=== PATIENT | female | born 1945 | race Caucasian/White ===

== ENCOUNTER 2017-02-26 11:59 | Inpatient (IN) | payer MEDICARE ==
[~2017-02-26] VITALS: Ht 170.2 cm; Wt 103.7 kg
[~2017-02-26 11:59] MED LIST: ASCO500T23; ERGO400C; LOVA20TA7; MVI; WARF6TAB2; [UNRECOGNIZED DRUG - CODE]; vitamin e
--- NOTE | 2017-02-26 12:16 | ED.REPORT ---
HPI-Chest Pain 40 and Over Date of Service Feb 26, 2017 ED Provider: Keanu Mayo The patient is a 71 year old female with history of atrial fibrillation on Warfarin, who was sent to the emergency department from her primary care provider's office for further evaluation. The patient presented this morning for intermittent chest pressure with exertion that began about 1 month ago. Her pain is improved with rest. The pain is located to her central chest and neck. She also mentions back pain and lower extremity swelling. At the clinic this morning she was found to be in atrial fibrillation with a rate in the 130's. Her primary care physician was concerned about ST depressions seen on the EKG. They spoke to the utility worker roller shop who recommended evaluation in the emergency department. She is not currently in any pain. She denies lightheadedness, dizziness, weakness, shortness of breath, nausea, vomiting or diaphoresis. Her metoprolol was increased on Friday to 150 mg in the AM and 100 mg in the night. Nursing Notes Stated Complaint: RAPID A-FIB Nursing Notes Reviewed: Yes Allergies: Coded Allergies: codeine (Verified Allergy, Intermediate, very agitated / hyper, 02/26/17) Scheduled Ascorbate Calcium (Vitamin C) 500 Mg Tablet 500 MG PO QAM Cholecalciferol (Vitamin D3) (Vitamin D3) 2,000 Unit Capsule 4,000 UNIT PO QAM Cyclosporine (Restasis) 1 Each Droperette 1 DROP BOTH_EYES BID Lisinopril (Lisinopril) 40 Mg Tablet 40 MG PO QAM Lovastatin (Lovastatin) 20 Mg Tablet 30 MG PO HS Metoprolol Succinate ER (Metoprolol Succinate ER) 100 Mg Tab.er.24h 150 MG PO QAM Metoprolol Succinate ER (Metoprolol Succinate ER) 100 Mg Tab.er.24h 100 MG PO QPM Multivitamin (Multivitamins) 1 Each Capsule 1 EACH PO QAM Center-3/Dha/Epa/Fish Oil (Fish Oil 1,000 mg Softgel) 1 Each Capsule 1 EACH PO QAM Warfarin Sodium (Coumadin) 5 Mg Tablet 5 MG PO QPM General Time Seen by MD: 12:15 Chief Complaint Chest pain, Other (EKG changes) Hx Obtained From: Patient, Primary care provider Arrived By: Walk-in Sudden in Onset?: No Onset Occurred: More than a week ago... (1 month) Symptom Duration: Intermittent Location: : Substernal Quality: Pressure Radiation: : Neck Migration/Movement: Reports: None Severity: Current: No pain currently Severity: Maximum: Moderate Recent Healthcare: No recent hospitalization, Recent doctor visit Similar Sx Previous: Yes Risk Factors )( CAD Risk Stratification Hyperlipidemia HypertensionNo Diabetes mellitus, No Known CAD, No Smoking Risk factors reviewed )( TAD Risk Stratification HypertensionNo Risk factors reviewed )( PE Risk Stratification No , No , No Previous DVT, No Previous PE Risk factors reviewed Past Medical History Past Medical History 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 Knapp Past Medical History Atrial fibrillation Hypertension Hyperlipidemia Denies: Coronary artery disease Past Surgical History Colectomy Pacemaker x2 Cholecystectomy Appendectomy Family History Noncontributory Smoking History Never Smoker Social History Alcohol Use: "Social" Drug Use: Denies drug use Other Social History: Good social support, , Local resident Ambulatory Status Independent Review of Systems Respiratory: Denies: Shortness of breath Cardiovascular: Reports: Chest pain, Palpitations (chronic) GI: Denies: Nausea, Vomiting Musculoskeletal: Reports: Back pain, Extremity swelling, Neck pain Skin: Denies Diaphoresis Neurologic: Denies: Dizziness, Lightheaded, Weakness Complete sys rev & neg: except as marked. Physical Exam Initial Vital Signs Vital Signs (First) Date Time Temp Pulse Resp B/P Pulse Ox O2 Delivery O2 Flow Rate FiO2 02/26/17 12:17 36.7 132 20 157/105 96 Room Air Initial VS: Reviewed Head / Eyes: Atraumatic, Normocephalic, PERRL ENT: Mucous membranes moist, Conjunctiva normal, No scleral icterus Neck: Supple, Non-tender, Full range of motion Lymphatic: No lymphadenopathy Extremities: Vascular intact, Neuro intact, No swelling, No tenderness Skin: Warm, Dry, No cyanosis Neurologic: Alert, Oriented, Nonfocal Psychiatric: Mood/affect normal, Behavior normal, Normal thought content General/Constitutional: Awake, Alert, No acute distress, Well appearing Respiratory / Chest: Atraumatic, Breath sounds NL, Breath sounds = bilat, No respiratory distress, No rales, No rhonchi, No wheezing, No stridor, No chest tenderness Cardiovascular: No murmurs Heart Rate / Rhythm: Positive: Irreg irregular rhythm, Tachycardia Abdomen: Atraumatic, Soft, Non-tender, McBurney's non-tender, No guarding, No rebound, BS normoactive, No distention, No hernia, No palpable mass Interpretation & Diagnostics Lab Results Interpretation Result Diagram: 02/26/17 1230 02/26/17 1230 Test 02/26/17 12:30 White Blood Count 6.4th/mm3 (3.8-10.1) Red Blood Count 4.64mil/mm3 (3.90-5.20) Hemoglobin 14.0g/dL (12.0-15.6) Hematocrit 43.7% (35.0-46.0) Mean Corpuscular Volume 94.2fL (81-100) Mean Corpuscular Hemoglobin 30.2pg (27.0-35.0) Mean Corpuscular Hemoglobin Concent 32.0% (32.0-37.0) Red Cell Distribution Width 14.4% (12.3-15.4) Platelet Count 231bil/L (150-400) Neutrophils (%) (Auto) 66.2% (40-74) Lymphocytes (%) (Auto) 23.1% (14-46) Monocytes (%) (Auto) 9.1% (4-12) Eosinophils (%) (Auto) 1.1% (0-5) Basophils (%) (Auto) 0.5% (0-3) Prothrombin Time 20.1sec (8.1-12.5) Prothromb Time International Ratio 1.85ratio Sodium Level 141mEq/L (134-144) Potassium Level 4.3mEq/L (3.5-5.2) Chloride Level 101mEq/L (97-108) Carbon Dioxide Level 25mmol/L (18-29) Blood Urea Nitrogen 20mg/dL (8-27) Creatinine 0.71mg/dL (0.57-1.00) Estimat Glomerular Filtration Rate 117mL/min (>59) Glucose Level 115mg/dL (60-99) Calcium Level 9.6mg/dL (8.5-10.1) Magnesium Level 1.9mg/dL (1.6-2.6) Total Bilirubin 1.3mg/dL (0.0-1.2) Aspartate Amino Transf (AST/SGOT) 39U/L (0-50) Alanine Aminotransferase (ALT/SGPT) 39U/L (0-32) Alkaline Phosphatase 223U/L (25-165) Troponin T < 0.010ug/L (0.0-0.011) Total Protein 7.2g/dL (6.4-8.4) Albumin 3.8g/dL (3.4-5.0) ECG Interpretation ECG Interpretation: Atrial fibrillation with a rate of 139 Time: 12:20 Interpreted by: ED physician X-Ray Chest Interpretation Chest Xray Interpretation: IMPRESSION: Mild cardiomegaly with edema. Dictated by: Ligia Boyce M.D. on 02/26/2017 at 13:34 Interpretation / Wet Read by: Interpret - Radiologist Re-Eval/Medical Decision Med Decision/Clinical Course 71 yo f with Afib with RVR and exertional cp x weeks. Afib RVR on arrival improved with HR 80s-100 with diltiazem 10mg iv. Discussed with Cardiology who recommended admission for chemical cardioversion with amiodarone given subtherapeutic INR (previously 1.9 01/13 per PMD). Crit care time billed. Admitted to [facility]. Source of Hx: Old records, Family Time of Eval: 14:07 Re-Evaluation/Progress Note: Discussed plan for additional labs. Time of Eval: 14:41 Re-Evaluation/Progress Note: Discussed plan for admission with the patient. All questions were addressed. Consultation #1: Referral / Consult Name: Vishal Trujillo MD Consulted With: Cardiology Requested Call at: 14:04 Call Returned at: 14:06 Pass Worker: Agrees with eval, Agrees with plan Note: He wants us to cardiovert as long as her INR is therapeutic. Consultation #2: Referral / Consult Name: Vishal Trujillo MD Consulted With: Cardiology Requested Call at: 14:30 Call Returned at: 14:33 Note: Discussed INR results. If her INR has been therapeutic recently, go ahead and cardiovert her. If not, give amiodarone and admit. Consultation #3: Referral / Consult Name: Marimar Condon MD Consulted With: Primary care physician Call Returned at: 14:38 Pass Worker: Agrees with eval, Agrees with plan Note: The patient's recent INR was 1.9. Will admit the patient. Consultation #4: Referral / Consult Name: Austin Morse MD Consulted With: Hospitalist Requested Call at: 14:42 Call Returned at: 14:48 Pass Worker: Will see patient, Agrees with eval, Agrees with plan, Accepts admit Counseled Regarding: Diagnosis, Lab results, Need for admission Discharge & Departure Primary Impression: Atrial fibrillation with rapid ventricular response Additional Impression: Subtherapeutic international normalized ratio (INR) Disposition: ADMITTED TO HOSPITAL Discharge Condition All VS Reviewed: Yes Condition: Stable Referrals: Kareem Knapp MD, Lucia C MD Crit Care Except Billable Proc Time Spent: 30-74 minutes Services Performed: Patient management by me, Time spent at bedside, Reviewing test results, Reviewing imaging, Discussing patient care, Documentation in record Scribe Attestation Portions of this note were transcribed by Lorrie Galvan. I, Dr. Mayo personally performed the history, physical exam and medical decision-making; I reviewed and confirmed the accuracy of the information in the transcribed note. Signed by: Jami Feliz, 02/26/2017 at 1500. copies to: Kareem Knapp MD; Marimar Condon MD, Ben M MD Feb 26, 2017 12:16 Lorrie Galvan Feb 26, 2017 12:31 ALEKSANDR MEJÍA Feb 26, 2017 15:01
[2017-02-26 12:17] VITALS: BP 157/105; PULSE 132; RESP 20; O2SAT 96
[2017-02-26 12:34] LABS: BASOPHILS % (AUTO) 0.5 % (0-3); EOSINOPHILS % (AUTO) 1.1 % (0-5); MONOCYTES % (AUTO) 9.1 % (4-12); Mean Corpuscular Hemoglobin 30.2 pg (27.0-35.0); Mean Corpuscular Volume 94.2 fL (81-100); NEUTROPHILS % (AUTO) 66.2 % (40-74); Platelet Count 231 bil/L (150-400)
[2017-02-26] MEDS ORDERED: Diltiazem 5 mg/mL 5 mL Inj IVPUSH ONE ×2 (12:40→13:35)
[2017-02-26 13:10] LABS: Magnesium 1.9 mg/dL (1.6-2.6)
[2017-02-26 13:13] LABS: TROPONIN T < 0.010 ug/L (0.0-0.011)
--- NOTE | 2017-02-26 13:36 | DRSVH ---
PROCEDURE: X-RAY CHEST ONE VIEW, PORTABLE ([id number]) INDICATIONS: chest pain TECHNIQUE: One view of the chest was acquired. COMPARISON: None. FINDINGS: Surgical changes and devices: Pacemaker. Lungs and pleura: No pleural effusions or pneumothorax. Mild increased pulmonary vascularity. Mediastinum: Mediastinal contours appear normal. Heart size is mildly enlarged. Bones and chest wall: No suspicious bony lesions. Overlying soft tissues appear unremarkable. IMPRESSION: Mild cardiomegaly with edema. Dictated by: Ligia Boyce M.D. on 02/26/2017 at 13:34 Approved by: Ligia Boyce M.D. on 02/26/2017 at 13:35
[2017-02-26 14:19] LABS: INR 1.85 ratio
[2017-02-26] MEDS ORDERED: Amiodarone 150 mg/100 mL D5W 150 MG in IV Premix 1 EACH IV ONE (14:40)
[2017-02-26] MEDS ORDERED: Alum-Mag Hydrox-Simeth 30 mL Suspension PO PRN (14:50)
[2017-02-26] MEDS ORDERED: Ondansetron 2 mg/mL 2 mL Inj IVPUSH PRN (14:50)
[2017-02-26] MEDS ORDERED: Polyethylene Glycol (PEG) 17 Gm Powder PO PRN (14:50)
[2017-02-26] MEDS ORDERED: LISI40TA PO (15:09)
[2017-02-26] MEDS ORDERED: OMEG-38 PO (15:09)
[2017-02-26] MEDS ORDERED: MULT1CAP33 PO (15:09)
[2017-02-26] MEDS ORDERED: CHOL200047 PO (15:09)
[2017-02-26] MEDS ORDERED: METO-274 PO ×2 (15:09)
[2017-02-26] MEDS ORDERED: WARF5TAB PO (15:09)
[2017-02-26] MEDS ORDERED: CYCL1DRO BOTH_EYES (15:09)
[2017-02-26] MEDS ORDERED: LOVA20TA PO (15:09)
[2017-02-26] MEDS ORDERED: ASCO-294 PO (15:09)
[2017-02-26 15:21] VITALS: BP 160/80; PULSE 100; RESP 18; O2SAT 97
--- NOTE | 2017-02-26 16:00 | NUR ---
Admit Pt admitted from ER for A-fib. Tele placed. A-fib rate 80s- low 100s. Amiodarone bolus dose given in the ER. Amiodarone maintenance dose started at 1600. Admit completed in ER. Full assessment completed. A&O X3. VSS. No skin issues. Oriented to room and call light.
[2017-02-26] MEDS: Amiodarone 360 mg/200 mL D5W 360 MG in IV Premix 1 EACH IV SCH ×2 (16:03→21:54)
--- NOTE | 2017-02-26 16:05 | PCM.PHAPRO ---
Progress Indication: A.FIB Home Dose: 5MG QD Date: 02/26 INR 1.85 CONCURRENT ENOX 40 GOAL INR: 2-3 One time dose of 5. Pt should likely require a dose reduction from home dose in subsequent dosing.. Pharmacy will continue to follow daily. Thank you for consulting pharmacy in the care of this patient. Augusto Bruce Feb 26, 2017 16:05
[2017-02-26 16:17] VITALS: BP 157/99; PULSE 91; RESP 24; O2SAT 97
--- NOTE | 2017-02-26 16:25 | PCM.HPMED ---
Subjective Date of Service Feb 26, 2017 Primary Provider: Admitting Physician: Primary Care Physician: Marimar Condon MD Attending Physician: Admit Status: From the Emergency Department, Full Admit, [facility] Telemetry Chief Complaint: Tachycardia with chest discomfort History of Present Illness: Tami Rader is a 71 year old female with Chronic atrial fibrillation on Warfarin, Hypertension, Hyperlipidemia who was sent to [facility] emergency department from her primary care provider's office for further evaluation due to persistent tachycardia The patient presented this morning for intermittent chest pressure (intensity 4/ 10 without any radiation, mid sternal location) with exertion that began about 1 month ago. Her pain is improved with rest and is exacerbated with exertion. She also mentions back pain and mild ankle swelling. At the clinic this morning she was found to be in atrial fibrillation with a rate in the 130's. Her primary care physician was concerned about ST depressions seen on the EKG. They spoke to the tourist home keeper who recommended evaluation in the emergency department. She is not currently in any pain. She denies lightheadedness, dizziness, weakness, shortness of breath, nausea, vomiting or diaphoresis. No prior history of Myocardial infarction. Her metoprolol was increased on Friday to 150 mg in the AM and 100 mg in the night in an effort to try to control her heart rate. Patient was diagnosed with A fib since 2000 without any strokes. Take Coumadin for anticoagulation Case discussed with Dr Huffman, he spoke to Dr Landaverde who recommended admission to try pharmacologic cardioversion with Amiodarone and the patient was not therapeutic to under any electrical cardioversion. Heart rate improved after Diltiazem 10 mg IV. Initial troponin negative Review of Systems: Pertinent positives as noted in HPI. All other systems were reviewed and are negative Allergies Coded Allergies: codeine (Verified Allergy, Intermediate, very agitated / hyper, 02/26/17) Home Medications From Tami Wong [id number] 1945 08/07/2016 01:40 PM 12/05 Fish Oil 1 tablet by mouth daily lisinopril 40 mg tablet take 1 tablet by oral route every day lovastatin 20 mg Tab take 1.5 tablet (30MG) by ORAL route every day with evening meal metoprolol succinate ER 100 mg tablet,extended release 24 hr take 1.5 tablet in the morning and 1 tablet in the evening Multiple Vitamin Tab take 1 tablet by ORAL route every day with food Vitamin C 500 mg tablet 1 tablet by mouth daily Vitamin D3 2,000 unit tablet 2 tablets by mouth daily Warfarin Sodium managed by pcp PMH Chronic Atrial fibrillation on Coumadin Hypertension Hyperlipidemia 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 Surgical History Single chamber pacemaker placement Appendectomy Cholecystectomy Sigmoid colectomy for tubulovillous adenoma Cervical cyst removal Benign breast lumpectomy Bone graft after cyst resection from finger Family History Maternal aunts with Breast cancer No family history of heart disease Social History Hx Alcohol Use: Yes (Rarely) Hx Substance Use: No Hx Tobacco Use: No Smoking Status: Never Smoker Living Arrangement: with Family Exam Vital Signs Vital Sign - Last Date Time Temp Pulse Resp B/P Pulse Ox O2 Delivery O2 Flow Rate FiO2 02/26/17 12:17 36.7 132 20 157/105 96 Room Air Exam General: Alert, Oriented X3, Cooperative, No acute Distress Eyes: PERRLA, Scleral Anicteric Mouth: Mouth Normal, Mucous Membranes Moist/[place] Neck: Supple, no Thyromegaly, trachea central. Chest & Lungs: Clear to auscultation & percussion, No adventitious breath sounds, no crackles, no wheeze Cardiovascular: Normal S1, Normal S2, No Murmurs/Rubs/Gallops, Irregularly irregular (No JVD) Pulses: Radial (present and equal), Dorsalis Pedi (present and equal) Abdomen: Soft, Non-tender, Non-distended, Normoactive bowel tones. Musculoskeletal: Unremarkable. Normal range of motion, no swollen or erythematous joints Extremities: mild ankle edema, no cyanosis, no clubbing. Skin: No rashes. Warm and dry, no erythematous areas Neurological: Grossly neurologically intact, Normal Speech, Sensation Intact Lymphatic: Lymph nodes Cervical and Axillary not palpable. Lab and Diagnostics Labs Laboratory Tests Test 02/26/17 12:30 White Blood Count 6.4th/mm3 (3.8-10.1) Red Blood Count 4.64mil/mm3 (3.90-5.20) Hemoglobin 14.0g/dL (12.0-15.6) Hematocrit 43.7% (35.0-46.0) Mean Corpuscular Volume 94.2fL (81-100) Mean Corpuscular Hemoglobin 30.2pg (27.0-35.0) Mean Corpuscular Hemoglobin Concent 32.0% (32.0-37.0) Red Cell Distribution Width 14.4% (12.3-15.4) Platelet Count 231bil/L (150-400) Neutrophils (%) (Auto) 66.2% (40-74) Lymphocytes (%) (Auto) 23.1% (14-46) Monocytes (%) (Auto) 9.1% (4-12) Eosinophils (%) (Auto) 1.1% (0-5) Basophils (%) (Auto) 0.5% (0-3) Prothrombin Time 20.1sec (8.1-12.5) Prothromb Time International Ratio 1.85ratio Sodium Level 141mEq/L (134-144) Potassium Level 4.3mEq/L (3.5-5.2) Chloride Level 101mEq/L (97-108) Carbon Dioxide Level 25mmol/L (18-29) Blood Urea Nitrogen 20mg/dL (8-27) Creatinine 0.71mg/dL (0.57-1.00) Estimat Glomerular Filtration Rate 117mL/min (>59) Glucose Level 115mg/dL (60-99) Calcium Level 9.6mg/dL (8.5-10.1) Magnesium Level 1.9mg/dL (1.6-2.6) Total Bilirubin 1.3mg/dL (0.0-1.2) Aspartate Amino Transf (AST/SGOT) 39U/L (0-50) Alanine Aminotransferase (ALT/SGPT) 39U/L (0-32) Alkaline Phosphatase 223U/L (25-165) Troponin T < 0.010ug/L (0.0-0.011) Total Protein 7.2g/dL (6.4-8.4) Albumin 3.8g/dL (3.4-5.0) Result Diagram: 02/26/17 1230 02/26/17 1230 X-Rays, CTs and MRIs X-RAY CHEST ONE VIEW, PORTABLE 02/26 IMPRESSION: Mild cardiomegaly with edema. Dictated by: Ligia Boyce M.D. on 02/26/2017 at 13:34 Approved by: Ligia Boyce M.D. on 02/26/2017 at 13:35 Assessment & Plan Tami Rader is a 71 year old female with Chronic atrial fibrillation on Warfarin, Hypertension, Hyperlipidemia who was sent to [facility] emergency department from her primary care provider's office for further evaluation due to persistent tachycardia 1. Persistent Atrial fibrillation with rapid ventricular response. Present on admission [id number] score 3 (Stroke risk 3.2%/yr) currently on Coumadin but sub therapeutic. Rate has not been well controlled despite titrating the dose of Metoprolol. - monitor on telemetry - continue Amiodarone drip, transition to Amiodarone PO tomorrow - continue Metoprolol for rate control - Coumadin dosing as per pharmacy 2. Elevated transaminase. Present on admission Etiology unclear with only ALT, Alkaline phosphatase and bilirubin elevation. Consideration for gallbladder disease or statin induced liver injury. Could be due to congestion as well - trend but will need outpatient follow up - current issues are not related to these elevations 3. Hypertension Presumed stable chronically - continue Lisinopril 40 mg daily 4. Hyperlipidemia - continue Lovastatin 5. Tachy maisha syndrome s/p pacemaker placement - recent check showed pacemaker functioning properly - Acetaminophen as needed for mild pain/fever/headache - Bowel regimen as needed - Antiemetic as needed Patient admitted under inpatient status with expected length of stay > 2 midnights for severity of present symptoms, complexities of treatment plan and risk for adverse event . Resuscitation Status: CPR: Attempt Resuscitation Austin Morse MD Feb 26, 2017 14:53
[2017-02-26 16:26] VITALS: PULSE 94
[2017-02-26 17:50] VITALS: BP 153/83; PULSE 95; RESP 17; O2SAT 96
[2017-02-26 19:13] LABS: APPEARANCE,URINE CLEAR (CLEAR,HAZY); COLOR,URINE YELLOW (YELLOW); PH,URINE 6.5 (5.0-8.0)
[2017-02-26 19:14] LABS: OCCULT BLOOD,URINE MODERATE (NEGATIVE); UROBILINOGEN,URINE NORMAL (NORMAL)
[2017-02-26 19:25] VITALS: BP 146/92; PULSE 100; RESP 16; O2SAT 97
[2017-02-26] MEDS: Lisinopril 40 Tablet PO SCH (23:20)
[2017-02-26] MEDS: MeTOProlol XL 50 mg ER24 Tablet PO SCH (23:57)
[2017-02-27] VITALS (11 sets, daily range): BP systolic 150–165; BP diastolic 69–121; PULSE 76–122; RESP 14–20; O2SAT 96–98
--- NOTE | 2017-02-27 00:18 | NUR ---
BP Pt's BP elevated. 158/120 at 1999. Provider paged about restarting BP medications as indicated in provider's note as the plan. Provider ordered. Dose given. Continue to monitor.
[2017-02-27] MEDS: CYCLOSPORINE BOTH_EYES SCH ×2 (08:30→19:46)
--- NOTE | 2017-02-27 09:11 | NUR ---
Social Work: Initial Assessment D: Per EMR review, pt is a 71 year old female admitted for AFIB with RVR. Pt is Medicare with AARP supplement; pt has no LTC insurance or VA Benefits. PCP is Marimar Condon MD. NOK is Emil Rader, spouse, . Advanced directives completed and in chart. Readmit score is low, 12/08. INFANTRY INDIRECT FIRE CREWMEMBER met with pt at bedside. Sw role and contact info provided. See initial assessment. Pt lives in [place] with her spouse in a mobile home. Pt is I with ADLs and uses no DME. Pt continues to drive and has never had HH or skilled rehab. Pt has 4 steps to enter her home. She has no concerns about discharge home and states her will transport her. Pt has been SBA-1PA during admission. INFANTRY INDIRECT FIRE CREWMEMBER reviewed possible HH option- pt states that she is not home bound and does not want HH at discharge. A: Pt who is I at baseline. P: Anticipate pt to likely discharge home via POV once medically stable; INFANTRY INDIRECT FIRE CREWMEMBER to continue to follow pt's clinical course. ALTAGRACIA Winkler Addendum: 02/27/17 at 0915 by NEHEMIAS NEELY Amended: Links added.
[2017-02-27] MEDS: Lisinopril 40 Tablet PO SCH (09:52)
[2017-02-27] MEDS: MeTOProlol XL 50 mg ER24 Tablet PO SCH ×2 (09:53→19:46)
[2017-02-27] MEDS: Amiodarone 360 mg/200 mL D5W 360 MG in IV Premix 1 EACH IV SCH ×2 (09:57→21:39)
--- NOTE | 2017-02-27 17:21 | PCM.PNMED ---
Subjective Date of Service Feb 27, 2017 Subjective 71 year old female with Chronic atrial fibrillation on Warfarin, Hypertension, Hyperlipidemia who was sent to [facility] emergency department from her primary care provider's office for further evaluation due to persistent tachycardia. She continues to feel palpitations today. Expressed chest heaviness with palpitation. No significant dyspnea today. She feels her pedal edema worse than usual. Exam Vital Signs Vital Sign - Last Date Time Temp Pulse Resp B/P Pulse Ox O2 Delivery O2 Flow Rate FiO2 02/27/17 16:52 36.7 103 20 155/120 97 Room Air 02/26/17 15:21 2 Intake and Output 02/26/17 02/26/17 02/27/17 Cumulative From/Thru 15:00 23:00 07:00 02/26/17 12:17 - 02/27/17 06:48 Intake Total 450 ml 200 ml 650 ml Output Total 300 ml 600 ml 900 ml Balance 150 ml -400 ml -250 ml Intake Oral 360 ml 200 ml 560 ml IV Total 90 ml 90 ml Output Urine Total 300 ml 600 ml 900 ml Exam General: Obese woman sitting in bed in no acute distress HEENT: sclerae anicteric, oral mucosa moist Neck: Skull to assess JVD Chest: Few basilar crackles clear to auscultation Cardiac: S1S2, irregular, tachycardic no murmur Abdomen: BS normal, non-tender Extremities: Plus edema Neuro: A&O, cranial nerves symmetric, motor strength 5/5, coordination normal Lab and Diagnostics Result Diagram: 02/26/17 1230 02/26/17 1230 X-Rays, CTs and MRIs X-RAY CHEST ONE VIEW, PORTABLE 02/26 IMPRESSION: Mild cardiomegaly with edema. Dictated by: Ligia Boyce M.D. on 02/26/2017 at 13:34 Approved by: Ligia Boyce M.D. on 02/26/2017 at 13:35 Assessment & Plan Tami Rader is a 71 year old female with Chronic atrial fibrillation on Warfarin, Hypertension, Hyperlipidemia who was sent to [facility] emergency department from her primary care provider's office for further evaluation due to persistent tachycardia #. Persistent Atrial fibrillation with rapid ventricular response. Present on admission [id number] score 3 (Stroke risk 3.2%/yr) currently on Coumadin but sub therapeutic. Rate has not been well controlled despite titrating the dose of Metoprolol. - monitor on telemetry - continue Amiodarone drip, transition to Amiodarone PO tomorrow - continue Metoprolol for rate control - Coumadin dosing as per pharmacy - Cardiology consult #. Hypertension Presumed stable chronically - continue Lisinopril 40 mg daily #. Hyperlipidemia - continue Lovastatin #. Tachy maisha syndrome s/p pacemaker placement - recent check showed pacemaker functioning properly - Acetaminophen as needed for mild pain/fever/headache - Bowel regimen as needed - Antiemetic as needed Patient admitted under inpatient status with expected length of stay > 2 midnights for severity of present symptoms, complexities of treatment plan and risk for adverse event . VTE Mechanical Devices: Intermittant Pneumatic CD Resuscitation Status: CPR: Attempt Resuscitation Time spent 35 minutes Demond Figueredo MD Feb 27, 2017 17:21
[2017-02-27 17:45] LABS: INR 1.9 ratio
--- NOTE | 2017-02-27 17:56 | PCM.PHAPRO ---
Progress Date of Service: Feb 27, 2017 Tachycardia with chest discomfort Warfarin management per pharmacy Indication: atrial fibrillation INR goal: 2-3 Home dose: 5 mg daily Possible interactions: amiodarone Other anticoagulants: no Date Feb 27-Jan INR 1.85 1.9 INR change 0.05 Warf Dose 5 xxxxx INR remains subtherapeutic. However, considering that patient has new start of amiodarone onboard, anticipate that patient's warfarin needs will be decreased so will proceed conservatively. Give warfarin 4 mg PO once this evening. Pharmacy to monitor and dose warfarin daily. Thank you, Marcel Membreno Pharmacist Marcel Membreno Feb 27, 2017 17:56
--- NOTE | 2017-02-27 18:27 | NUR ---
Blood Pressure Pts. blood pressure continues to be hypertensive throughout shift and MD was made aware. Last blood pressure taken for shift was 155/120. Pt. denies CP, light headedness or dizziness. Pt. at this time is resting in bed after eating her dinner.
[2017-02-28] VITALS (7 sets, daily range): BP systolic 147–174; BP diastolic 96–98; PULSE 70–88; RESP 15–20; O2SAT 96–100
[2017-02-28 04:12] LABS: INR 1.89 ratio
--- NOTE | 2017-02-28 04:54 | NUR ---
Telemetry Pt denies any pain/discomfort. Telemetry Afib HR 70s-80s. Per pt, she always have occasional palpitations even before this hospitalization. Pt mentioned that she gets that at times, but nothing compares to when she first got here. She denies any dizziness/sob. She reports feeling better tonight.
[2017-02-28] MEDS: CYCLOSPORINE BOTH_EYES SCH ×2 (09:05→20:02)
[2017-02-28] MEDS: Lisinopril 40 Tablet PO SCH (09:06)
[2017-02-28] MEDS: MeTOProlol XL 50 mg ER24 Tablet PO SCH ×2 (09:07→20:05)
[2017-02-28] MEDS: Amiodarone 360 mg/200 mL D5W 360 MG in IV Premix 1 EACH IV SCH (10:17)
--- NOTE | 2017-02-28 11:48 | CONS ---
[address] [address] CONSULTATION REPORT PATIENT: ALMA FUNEZ : 1945 MR#: [id number] ADMIT: 02/26/2017 JOB ID: [id number] DATE OF SERVICE: 02/28/2017 CARDIOLOGY CONSULTATION: CHIEF COMPLAINT: The patient came in with AFib with RVR. HISTORY OF PRESENT ILLNESS: The patient is a 71-year-old woman with past medical history significant for hypertension, dyslipidemia and atrial fibrillation. This is chronic. She has been on warfarin. She says that she is followed by Dr. Knapp and last saw him last fall at which time he wanted to take her off digoxin because of the concerns of a narrow therapeutic window and risk of toxicity. She said she has been off it but recently started noticing some chest tightness which she related to increased heart rate. She called the cardiology office this week and was told to increase her metoprolol from 100 b.i.d. to 150 and 100. Unfortunately this was not effective and she ultimately went to the ED on February 26. An EKG showed she was in atrial fibrillation with rapid ventricular response. Heart rates up to 140s. Her case was discussed with Dr. Landaverde who recommended putting her on amiodarone so an amiodarone drip was started and she has now completed a loading on this IV amiodarone. She has not converted to sinus rhythm although her heart rates are better controlled. She feels fine now. She denies any chest pain, chest pressure, shortness of breath, orthopnea, PND, lower extremity edema, presyncope, syncope. PAST MEDICAL HISTORY/PROBLEM LIST: 1. History of chronic atrial fibrillation. 2. Hypertension. 3. Hyperlipidemia. 4. 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 EF estimated 40% by last echocardiogram. MEDICATIONS: As an outpatient were: 1. Metoprolol succinate 150 in the morning, 100 at night. 2. Warfarin. 3. Lisinopril 40 daily. ALLERGIES: CODEINE. SOCIAL HISTORY: No tobacco, rare alcohol use. FAMILY HISTORY: No early coronary artery disease. REVIEW OF SYSTEMS: Overall health: No fevers, chills, night sweats, or weight loss. GI: No problems with ulcers or blood in his stool. : No dysuria, no hematuria. Pulmonary: No history of lung issues. Cardiac: As per HPI. Musculoskeletal: No joint pain or swelling. Derm: No rash or skin breakdown. Heme: No easy bruising or bleeding. Endocrine: No heat or cold intolerance. ENT: No difficulty swallowing or sore throat. No acute vision changes. Psych: No acute issues. All other review of systems on a 12-point review of systems are negative. PHYSICAL EXAMINATION: Blood pressure is 147/97, heart rate 81, sats are 99% on room air. General: In no acute distress. Speaking in full sentences without apparent shortness of breath. Head and neck examination: Normocephalic, atraumatic. Neck: No carotid bruits appreciated. Heart examination is irregular without obvious murmurs, gallops or rubs appreciated. Lungs clear to auscultation anteriorly. Back: No CVA tenderness to palpation. Abdomen: Soft, nontender. Extremities: Warm, no appreciable edema. 1+ distal pulses. Skin without breakdown appreciated. Neuro: Alert and oriented x3. Gait is not tested. Psych: Appropriate mood and affect. ENT: Mucous membranes moist. No erythema. Ophtho: Vision grossly intact. EKG as noted shows atrial fibrillation with rapid ventricular response. She is now in atrial fibrillation with controlled ventricular response. LABORATORIES: From February 26 show white count 6.4, H/H 14 and 43.7, platelets 231,000. Chemistry shows sodium 141, potassium 4.3, chloride and bicarbonate 101 and 24 respectively. BUN and creatinine 20 and 0.71. ALT 39, alk phos 223. Troponin less than 0.01. IMAGING: Shows a chest x-ray from February 26 which has some pulmonary edema. IMPRESSION: The patient came in with AFib with rapid ventricular response with associated chest symptoms. She has negative troponin. She is on amiodarone which is controlled her rate, however, she is in chronic atrial fibrillation and I doubt she will convert with amiodarone on board. Given the risk of continuing amiodarone, we are going to stop amiodarone. PLAN: 1. Stop amiodarone as noted. 2. Increase metoprolol succinate to 150 mg b.i.d. Will observe her while she is off the amiodarone. 3. Continue with Coumadin. 4. If we need to increase the metoprolol further and we do not have blood pressure workup, we can decrease or stop the lisinopril temporarily. Please note, I spent 45 minutes reviewing the patient's old records, speaking with the patient, examined the patient and discussed the case with hospice. DEMOND
--- NOTE | 2017-02-28 15:20 | PCM.PNMED ---
Subjective Date of Service Feb 28, 2017 Subjective 71 year old female with Chronic atrial fibrillation on Warfarin, Hypertension, Hyperlipidemia who was sent to [facility] emergency department from her primary care provider's office for further evaluation due to persistent tachycardia. Less intense palpitations today. No chest heaviness with palpitation. No significant dyspnea today. She feels her pedal edema improving. Exam Vital Signs Vital Sign - Last Date Time Temp Pulse Resp B/P Pulse Ox O2 Delivery O2 Flow Rate FiO2 02/28/17 12:39 36.2 88 17 154/96 98 Room Air 02/26/17 15:21 2 Intake and Output 02/27/17 02/27/17 02/28/17 Cumulative From/Thru 14:59 22:59 06:59 02/26/17 12:17 - 02/28/17 06:28 Intake Total 1038 ml 500 ml 2188 ml Output Total 1500 ml 450 ml 2850 ml Balance -462 ml 50 ml -662 ml Intake Oral 1038 ml 300 ml 1898 ml IV Total 200 ml 290 ml Output Urine Total 1500 ml 450 ml 2850 ml Exam General: Obese woman sitting in bed in no acute distress HEENT: sclerae anicteric, oral mucosa moist Neck: Skull to assess JVD Chest: clear to auscultation Cardiac: S1S2, irregular Abdomen: BS normal, non-tender Extremities: 2 Plus edema Neuro: A&O, cranial nerves symmetric, motor strength 5/5, coordination normal IVs and Medications Medications Reviewed: Medications were reviewed in detail Lab and Diagnostics Result Diagram: 02/26/17 1230 02/26/17 1230 X-Rays, CTs and MRIs X-RAY CHEST ONE VIEW, PORTABLE 02/26 IMPRESSION: Mild cardiomegaly with edema. Dictated by: Ligia Boyce M.D. on 02/26/2017 at 13:34 Approved by: Ligia Boyce M.D. on 02/26/2017 at 13:35 Assessment & Plan Tami Rader is a 71 year old female with Chronic atrial fibrillation on Warfarin, Hypertension, Hyperlipidemia who was sent to [facility] emergency department from her primary care provider's office for further evaluation due to persistent tachycardia #. Persistent Atrial fibrillation with rapid ventricular response. Present on admission [id number] score 3 (Stroke risk 3.2%/yr) currently on Coumadin but sub therapeutic. Rate has not been well controlled despite titrating the dose of Metoprolol. - monitor on telemetry - regulatory services consultant is following -Discontinue Amiodarone drip -Increase Metoprolol from 250 mg per day to 300 mg per day for rate control - Coumadin dosing as per pharmacy #. Hypertension Presumed stable chronically - continue Lisinopril 40 mg daily #. Hyperlipidemia - continue Lovastatin #. Tachy maisha syndrome s/p pacemaker placement - recent check showed pacemaker functioning properly - Acetaminophen as needed for mild pain/fever/headache - Bowel regimen as needed - Antiemetic as needed Disposition: Atrial fib heart rate is currently in good control with metoprolol and amiodarone load. If she remains well controlled on metoprolol only, then likely to discharge home on 03/01. . VTE Mechanical Devices: Intermittant Pneumatic CD Resuscitation Status: CPR: Attempt Resuscitation Time spent 30 minutes Demond Figueredo MD Feb 28, 2017 15:19
--- NOTE | 2017-02-28 18:26 | NUR ---
HR/BP Pt's Hr 60s-80s a fib on amiodarone gtt with brief increases to the 100s with activity. Pt's amiodarone gtt D/C'd and evening dosing of metoprolol increased to 150mg. Pt's HR remained 60s-80s throughout shift. Pt's BP trends have been running hypertensive, Pt's BP 168/98, made aware, hi chlorthalidone dose added to Pt's eMAR, awaiting dose for newly ordered medication at shift change.
[2017-03-01] VITALS (7 sets, daily range): BP systolic 157–190; BP diastolic 94–120; PULSE 75–89; RESP 12–20; O2SAT 97–100
--- NOTE | 2017-03-01 02:54 | NUR ---
HTN Pt hypertensive at HS w/ BP 170s-90s, pt given HS BP meds including chlorthalidone and increased Metoprolol dose. BP 170s/100s when reassessed. Pt denies any symptoms. notified, no new orders at this time. Tele Afib w/ HR 70s-80s
[2017-03-01 03:37] LABS: INR 2.15 ratio
--- NOTE | 2017-03-01 05:08 | NUR ---
IV Swelling/Redness Right AC IV site noted to be reddened/swollen, pt denied any pain at site. IV catheter DC'd intact. Area marked w/ buck to assess for changes. New IV started on left forearm by suman Elliott. Addendum: 03/01/17 at 0716 by OHLLI BATISTA RN Redness has not expanded from outline, checked again w/ day SHELBI
[2017-03-01] MEDS: MeTOProlol XL 50 mg ER24 Tablet PO SCH (07:26)
[2017-03-01] MEDS: Lisinopril 40 Tablet PO SCH (07:26)
[2017-03-01] MEDS: CYCLOSPORINE BOTH_EYES SCH (07:28)
--- NOTE | 2017-03-01 12:59 | PCM.DIMED ---
Discharge Instructions Date of Service Mar 01, 2017 Dates of Hospitalization Feb 26, 2017 at 15:09 Discharge Diagnosis Discharge Diagnosis #. Persistent Atrial fibrillation with rapid ventricular response. Improved. #. Hypertension, poor control. Improved. #. Hyperlipidemia #. Tachy maisha syndrome s/p pacemaker placement Diet Low fat, Low Sodium Activity Limited until seen by PCP Call your provider Fever or Chills, Shortness of breath, Chest pain Patient Instructions Follow-up Provider: Kareem Knapp MD Follow-up with PCP in: 1 week Aaron Cabello MD Mar 01, 2017 12:59
[2017-03-01] MEDS ORDERED: HYG25 PO (13:05)
[2017-03-01] MEDS ORDERED: METO-274 PO ×2 (13:05→13:45)
--- NOTE | 2017-03-01 14:41 | NUR ---
BP/Discharge Pt's BP 170/111 this am prior to medication administration, MD made aware, Pt asymptomatic, Pt's subsequent BP 157/112, Pt discussed BP with MD prior to discharge order being placed. Pt discharged to home with family today at ~1430. Pt given discharge educational materials on new prescription and atrial fibrillation. Pt's IV access D/C'd and intact. Pt instructed to call Dr. Knapp's office tomorrow for a f/u appointment, Pt verbalized that she already had a call in and would pursue this in the am. Pt verbalized understanding of all discharge instructions. All belongings accompanied Pt at time of discharge.
--- NOTE | 2017-03-01 14:49 | PCM.DC.MED ---
Discharge Summary Date of Service Mar 01, 2017 Dates of Hospitalization Date of Hospital Admission Feb 26, 2017 at 15:09 Date of Discharge: Mar 01, 2017 Providers: Admitting Physician: Austin Morse MD Primary Care Physician: Marimar Condon MD Attending Physician: Austin Morse MD Diagnosis at Time of Discharge Diagnosis at Time of Discharge #. Paroxysmal Atrial fibrillation with rapid ventricular response. Improved. #. Hypertension, poor control. Improved. #. Hyperlipidemia #. Tachy maisha syndrome s/p pacemaker placement Consultations Dr Donnelly, cardiology Procedures XRay, CTs & MRIs X-RAY CHEST ONE VIEW, PORTABLE 02/26 IMPRESSION: Mild cardiomegaly with edema. Dictated by: Ligia Boyce M.D. on 02/26/2017 at 13:34 Approved by: Ligia Boyce M.D. on 02/26/2017 at 13:35 ECG 12 Lead AF with RVR Cardiac Echo Impression None Invasive Procedures None Brief History Tami Rader is a 71 year old female with Chronic atrial fibrillation on Warfarin, Hypertension, Hyperlipidemia who was sent to [facility] emergency department from her primary care provider's office for further evaluation due to persistent tachycardia The patient presented this morning for intermittent chest pressure (intensity 4/ 10 without any radiation, mid sternal location) with exertion that began about 1 month ago. Her pain is improved with rest and is exacerbated with exertion. She also mentions back pain and mild ankle swelling. At the clinic this morning she was found to be in atrial fibrillation with a rate in the 130's. Her primary care physician was concerned about ST depressions seen on the EKG. They spoke to the mold engraver who recommended evaluation in the emergency department. She is not currently in any pain. She denies lightheadedness, dizziness, weakness, shortness of breath, nausea, vomiting or diaphoresis. No prior history of Myocardial infarction. Her metoprolol was increased on Friday to 150 mg in the AM and 100 mg in the night in an effort to try to control her heart rate. Patient was diagnosed with A fib since 2000 without any strokes. Take Coumadin for anticoagulation Case discussed with Dr Huffman, he spoke to Dr Landaverde who recommended admission to try pharmacologic cardioversion with Amiodarone and the patient was not therapeutic to under any electrical cardioversion. Heart rate improved after Diltiazem 10 mg IV. Initial troponin negative Hospital Course Tami Rader is a 71 year old female with Chronic atrial fibrillation on Warfarin, Hypertension, Hyperlipidemia who was sent to [facility] emergency department from her primary care provider's office for further evaluation due to persistent tachycardia #. Persistent Atrial fibrillation with rapid ventricular response. Present on admission [id number] score 3 (Stroke risk 3.2%/yr) currently on Coumadin but sub therapeutic. Rate has not been well controlled despite titrating the dose of Metoprolol. - monitor on telemetry - hospice consultant is following -Discontinue Amiodarone drip -Increase Metoprolol from 250 mg per day to 300 mg per day for rate control - Coumadin dosing as per pharmacy #. Hypertension Presumed stable chronically - continue Lisinopril 40 mg daily #. Hyperlipidemia - continue Lovastatin #. Tachy maisha syndrome s/p pacemaker placement - recent check showed pacemaker functioning properly - Acetaminophen as needed for mild pain/fever/headache - Bowel regimen as needed - Antiemetic as needed Disposition: Atrial fib heart rate is currently in good control with metoprolol and amiodarone load. If she remains well controlled on metoprolol only, then likely to discharge home on 03/01. Hospital course: pt admitted with hypertension and AF with RVR. She was initally treated with an amiodarone drip and then her metoprolol was increased to 150 BID. The amiodarone was stopped. She had no chest pain. On the day of discharge her BP was a little improved. . Exam Vital Signs (Last) Date Time Temp Pulse Resp B/P Pulse Ox O2 Delivery O2 Flow Rate FiO2 03/01/17 12:15 89 12 157/112 97 Room Air 03/01/17 07:19 36.5 02/26/17 15:21 2 Exam Patient seen and examined on the day of discharge. Test 02/26/17 08:55 02/26/17 12:30 03/01/17 03:10 Urine Color Yellow (YELLOW) Urine Appearance Clear (CLEAR,HAZY) Urine pH 6.5 (5.0-8.0) Urine Specific [place] 1.020 (1.003-1.035) Urine Protein 100mg/dL (NEG,TRACE) Urine Glucose (UA) Negativemg/dL (NEGATIVE) Urine Ketones Negativemg/dL (NEGATIVE) Urine Occult Blood Moderate (NEGATIVE) Urine Nitrite Negative (NEGATIVE) Urine Bilirubin Negative (NEGATIVE) Urine Urobilinogen Normalmg/dL (NORMAL) Urine Leukocyte Esterase Trace (NEGATIVE) Urine RBC 11-50/hpf (0-2) Urine WBC 6-10/hpf (0-5) Urine Epithelial Cells Few/hpf (NONE-MOD) Urine Crystals None seen (NONE SEEN) Urine Bacteria Few/hpf (NONE-FEW) Urine Hyaline Casts None/lpf (NONE) Urine Granular Casts None seen (NONE SEEN) Urine Waxy Casts None seen (NONE SEEN) Urine Red Blood Cell Casts None seen (NONE SEEN) Urine White Blood Cell Casts None seen (NONE SEEN) Urine Mucus None seen (None Seen) Urine Trichomonas None seen (NONE SEEN) Urine Yeast None (NONE SEEN) Urinalysis Comment None Urine Culture Reflexed Indicated White Blood Count 6.4th/mm3 (3.8-10.1) Red Blood Count 4.64mil/mm3 (3.90-5.20) Hemoglobin 14.0g/dL (12.0-15.6) Hematocrit 43.7% (35.0-46.0) Mean Corpuscular Volume 94.2fL (81-100) Mean Corpuscular Hemoglobin 30.2pg (27.0-35.0) Mean Corpuscular Hemoglobin Concent 32.0% (32.0-37.0) Red Cell Distribution Width 14.4% (12.3-15.4) Platelet Count 231bil/L (150-400) Neutrophils (%) (Auto) 66.2% (40-74) Lymphocytes (%) (Auto) 23.1% (14-46) Monocytes (%) (Auto) 9.1% (4-12) Eosinophils (%) (Auto) 1.1% (0-5) Basophils (%) (Auto) 0.5% (0-3) Sodium Level 141mEq/L (134-144) Potassium Level 4.3mEq/L (3.5-5.2) Chloride Level 101mEq/L (97-108) Carbon Dioxide Level 25mmol/L (18-29) Blood Urea Nitrogen 20mg/dL (8-27) Creatinine 0.71mg/dL (0.57-1.00) Estimat Glomerular Filtration Rate 117mL/min (>59) Glucose Level 115mg/dL (60-99) Calcium Level 9.6mg/dL (8.5-10.1) Magnesium Level 1.9mg/dL (1.6-2.6) Total Bilirubin 1.3mg/dL (0.0-1.2) Aspartate Amino Transf (AST/SGOT) 39U/L (0-50) Alanine Aminotransferase (ALT/SGPT) 39U/L (0-32) Alkaline Phosphatase 223U/L (25-165) Troponin T < 0.010ug/L (0.0-0.011) Total Protein 7.2g/dL (6.4-8.4) Albumin 3.8g/dL (3.4-5.0) Prothrombin Time 23.4sec (8.1-12.5) Prothromb Time International Ratio 2.15ratio Microbiology Results None. Discharge Medications Discharge Medications Ascorbate Calcium (Vitamin C) 500 Mg Tablet 500 MG PO QAM (Reported) Chlorthalidone (Chlorthalidone) 25 Mg Tablet 25 MG PO DAILY Prescribed by: AARON REYES MD Cholecalciferol (Vitamin D3) (Vitamin D3) 2,000 Unit Capsule 4,000 UNIT PO QAM ( Reported) Cyclosporine (Restasis) 1 Each Droperette 1 DROP BOTH_EYES BID (Reported) Lisinopril (Lisinopril) 40 Mg Tablet 40 MG PO QAM (Reported) Lovastatin (Lovastatin) 20 Mg Tablet 30 MG PO HS (Reported) Metoprolol Succinate ER (Metoprolol Succinate ER) 100 Mg Tab.er.24h 150 MG PO DAILY Prescribed by: AARON REYES MD Metoprolol Succinate ER (Metoprolol Succinate ER) 100 Mg Tab.er.24h 150 MG PO BID Prescribed by: AARON REYES MD Multivitamin (Multivitamins) 1 Each Capsule 1 EACH PO QAM (Reported) [place]-3/Dha/Epa/Fish Oil (Fish Oil 1,000 mg Softgel) 1 Each Capsule 1 EACH PO QAM (Reported) Warfarin Sodium (Coumadin) 5 Mg Tablet 5 MG PO QPM (Reported) Followup Plan Disposition: Home with family Discharge Diet: Low fat, Low Sodium Discharge Activity: Limited until seen by PCP Follow-up Provider: Kareem Knapp MD Follow-up with PCP in: 1 week Time spent 45 min Aaron Reyes MD Mar 01, 2017 14:49
== END 2017-03-01 14:30 | disposition home or self-care (01) | DRG 310 ==
LOC: EDUNIT# 11:59 → EDBD 11:59 → SED 11:59 → PCC 15:09
PROVIDERS: ADMIT Hospitalist; ATTEND Hospitalist
PROC: 3E040RZ Introduction of Antiarrhythmic into Central Vein, Open Approach (ICD-10-PCS; principal; 2017-02-26)
DX: I48.2 Chronic atrial fibrillation (principal); I10 Essential (primary) hypertension; E78.5 Hyperlipidemia, unspecified; Z95.0 Presence of cardiac pacemaker; Z79.01 Long term (current) use of anticoagulants